=== PATIENT | male | born 1970 | race Caucasian/White ===

== ENCOUNTER 2018-05-29 19:15 | Emergency (ER) | payer BC ==
--- NOTE | 2018-05-29 19:25 | EDM.PDOC ---
ED HPI GENERAL MEDICAL PROBLEM - General Chief Complaint: General Stated Complaint: swelling post procedure Time Seen by Provider: 05/29/18 19:20 Source of Information: Reports: Patient, Family (), Old Records ([facility] chart/EMR) History Limitations: Reports: No Limitations - History of Present Illness INITIAL COMMENTS - FREE TEXT/NARRATIVE: Patient was brought to the emergency room via private automobile by his for evaluation of mild left CVA swelling after a cryoablation at [facility] in [place] yesterday morning for recently diagnosed kidney cancer. Patient did take 800 mg of ibuprofen at 14:00 hours with improvement of his discomfort, which is only 2-3/10 at this time. His chronic mild hematuria has remained stable despite above seizure as above with no colic, UTI symptoms, etc.. No recent history of abdominal pain, heartburn, nausea, diarrhea, melena, gross hematochezia, or any food intolerance, including fatty foods, etc.. The patient denies any chest pain/pressure, heart flutter, dizziness, orthostasis, orthopnea, diaphoresis, paresthesias, recent decreased exercise tolerance, or any other anginal-type symptoms. The patient also denies any recent fever, cough , wheezing, dyspnea, etc.. Onset: Gradual Onset Date: 05/28/18 Onset Time: 17:00 Duration: Constant, Getting Worse (Swelling although improved pain as above) Location: Reports: Abdomen (Left CVA). Denies: Head, Face, Neck, Chest, Back, Pelvis, Radiates to Quality: Reports: Throbbing Severity: Mild Improves with: Reports: Medication Worsens with: Reports: Movement Context: Reports: Other (As above). 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 Musculoskeletal History: Reports: Arthritis, Fracture, Osteoarthritis, Other ( See Below) Other Musculoskeletal History: Partial tear of the lower medial aspect of the medial head of the gastrocnemius muscle of his right leg on 03/31/10. Right hand hamate bone fracture on 02/23/01. Partial sacralization of L5. Psychiatric History: Reports: Anxiety, Depression. Denies: Psych Hospitalization(s), Suicide Attempt, Suicidal Ideation Oncologic (Cancer) History: Reports: Renal, Other (See Below) Other Oncologic History: Left renal cancer diagnosed in March 2018 with current cryoablation therapy. Initial size of tumor was 3.5 cm. - Past Imaging History Past Imaging History: Reports: CAT Scan (Last CT of the scan of the abdomen and pelvis 05/28/18. CT of the head with and without contrast on 07/05/04.), MRI ( MRI of the right lower leg on 03/31/10.) Social & Family History - Tobacco Use Smoking Status *Q: Former Smoker Tobacco Use Within Last Twelve Months: No Years of Tobacco use: 22 Packs/Tins Daily: 1 Used Tobacco, but Quit: Yes Month/Year Tobacco Last Used: Smoked between ages 15 and 37 Smoking Cessation Information Provided To Patient: No Second Hand Smoke Exposure: No Second Hand Smoke Education Provided: No - Living Situation & Occupation Living situation: Reports: , with Family ED ROS GENERAL - Review of Systems Review Of Systems: ROS reveals no pertinent complaints other than HPI. ED EXAM, GENERAL - Physical Exam Exam: See Below Exam Limited By: No Limitations General Appearance: Alert, WD/WN, No Apparent Distress Head: Atraumatic, Normocephalic Neck: Normal Inspection, Supple, Non-Tender, Full Range of Motion. No: Lymphadenopathy (L), Lymphadenopathy (R), Thyromegaly Respiratory/Chest: No Respiratory Distress, Lungs Clear, Normal Breath Sounds, No Accessory Muscle Use, Chest Non-Tender. No: Pleural Rub, Retractions Cardiovascular: Normal Peripheral Pulses, Regular Rate, Rhythm, No Edema, No Gallop, No JVD, No Murmur, No Rub. No: Gallop/S3, Gallop/S4, Friction Rub Peripheral Pulses: 2+: Radial (L), Radial (R) GI/Abdominal: Normal Bowel Sounds, Soft, No Organomegaly, No Distention, No Abnormal Bruit, No Mass, Pelvis Stable, Tender (Mild palpation pain and minimal swelling over the left CVA area at site of small incision/cryotherapy with no ecchymosis, local warming, discharge, lymphangitis, or local signs of infection. ). No: Guarding, Rebound (Male) Exam: Deferred Rectal (Males) Exam: Deferred Back Exam: Full Range of Motion, CVA Tenderness (L) (As above). No: Muscle Spasm Extremities: Normal Inspection, Normal Range of Motion, Non-Tender, Normal Capillary Refill, No Pedal Edema Neurological: Alert, Oriented, CN II-XII Intact, Normal Cognition, Normal Gait, Normal Reflexes, No Motor/Sensory Deficits Psychiatric: Normal Affect, Normal Mood Skin Exam: No Rash, Wound/Incision (Incision site as above). No: Diaphoretic, Ecchymosis, Erythema, Increased Warmth, Lymphangitis, Petechiae Lymphatic: No Adenopathy Course - Vital Signs Last Recorded V/S: Last Vital Signs Temp 36.5 C 05/29/18 19:23 Pulse 83 05/29/18 19:23 Resp 20 05/29/18 19:23 BP 143/81 H 05/29/18 19:23 Pulse Ox 96 05/29/18 19:23 Vital Signs - 24 hr 05/29/18 19:23 Temperature [ 36.5 C Oral] Pulse, 83 Peripheral [ Brachial] Respiratory 20 Rate Blood Pressure 143/81 H [Right Upper Arm] O2 Sat by Pulse 96 Oximetry - Orders/Labs/Meds Orders: Active Orders 24 hr Category Date Time Status Obtain Past Medical Record [OM.PC] Routine Oth 05/29/18 19:25 Active Labs: None Meds: None - Radiology Interpretation Free Text/Narrative:: None Departure - Departure Time of Disposition: 19:45 Disposition: Home, Self-Care 01 Condition: Good Clinical Impression: Mixed anxiety depressive disorder Cancer of kidney Qualifiers: Laterality: left Qualified Code(s): C64.2 - Malignant neoplasm of left kidney, except renal pelvis Osteoarthritis Qualifiers: Osteoarthritis location: multiple joints Osteoarthritis type: primary Qualified Code(s): M15.0 - Primary generalized (osteo)arthritis - Discharge Information *PRESCRIPTION DRUG MONITORING PROGRAM REVIEWED*: Not Applicable *COPY OF PRESCRIPTION DRUG MONITORING REPORT IN PATIENT CAPRICE: Not Applicable Referrals: Ashley Hutchinson PA [Primary Care Provider] - Forms: ED Department Discharge Additional Instructions: 1. Follow up with your regular provider in 10-14 days as needed, if symptoms persist. Bring these discharge instructions with you to that visit.. 2. Tylenol 650 mg by mouth every 4 hours and/or OTC ibuprofen 2-3 tabs by mouth every 6 hours with food as directed./needed. 3. Ice packs to the affected area as needed/as discussed - Problem List & Annotations (1) Cancer of kidney Status: Acute Priority: High Annotation/Comment:: Only minimal clinical findings after cryoablation therapy of left renal cancer yesterday as above. Various therapeutic options were given to the patient and his with no further x-rays, blood work, etc. to this point. He is not having any additional radiation or chemotherapy to this point. Symptomatic relief as per discharge instructions. Patient will try to use Tylenol rather than ibuprofen for pain control. His ibuprofen dose was changed for better effectiveness. Continue close follow-up by her oncologist at [facility]. Qualifiers: Laterality: left Qualified Code(s): C64.2 - Malignant neoplasm of left kidney, except renal pelvis (2) Mixed anxiety depressive disorder SNOMED Code(s): 679646998 Code(s): F41.8 - OTHER SPECIFIED ANXIETY DISORDERS Status: Chronic Priority: Medium Annotation/Comment:: Stable by patient history despite his recent cancer diagnosis. Emotional support was provided. (3) Osteoarthritis SNOMED Code(s): 434778847 Code(s): M19.90 - UNSPECIFIED OSTEOARTHRITIS, UNSPECIFIED SITE Status: Chronic Priority: Medium Annotation/Comment:: Stable by patient history. Qualifiers: Osteoarthritis location: multiple joints Osteoarthritis type: primary Qualified Code(s): M15.0 - Primary generalized (osteo)arthritis - Problem List Review Problem List Initiated/Reviewed/Updated: Yes - My Orders Last 24 Hours: My Active Orders 05/29/18 19:25 Obtain Past Medical Record [OM.PC] Routine - Assessment/Plan Last 24 Hours: My Active Orders 05/29/18 19:25 Obtain Past Medical Record [OM.PC] Routine Assessment:: As above Plan: As above. Extensive precautions were given to the patient and his , who are in agreement with the treatment plan. See Patient Instructions for further treatment and plan.
== END 2018-05-29 19:45 | disposition home or self-care (01) ==
LOC: LL.ED 19:15
DX: F41.8 Other specified anxiety disorders (principal); C64.2 Malignant neoplasm of left kidney, except renal pelvis; M15.0 Primary generalized (osteo)arthritis; Z87.891 Personal history of nicotine dependence; Z88.6 Allergy status to analgesic agent
CPT/HCPCS: 99283